=== PATIENT | female | born 1990 | race African-American/Black ===

== ENCOUNTER 2020-10-12 08:19 | Emergency (ER) | payer MEDICAID ==
[~2020-10-12] VITALS: Ht 157.5 cm; Wt 117.0 kg
[2020-10-12] MEDS ORDERED: ACETAMINOPHEN 325MG TABLET PO ONE (09:00)
[2020-10-12 09:29] LABS: BASOPHILS % 1.2 % (0.0-2.0); EOSINOPHILS % 3.5 % (0.0-5.0); HEMATOCRIT. 35.1 % (36.0-48.0); HEMOGLOBIN. 11.1 g/dL (12.0-16.0); LYMPHOCYTES % 34.8 % (20.0-50.0); MEAN CORPUSCULAR VOLUME 78.9 fL (81.0-99.0); MEAN PLATELET VOLUME 7.6 fl (7.4-10.4); MONOCYTES % 8.2 % (2.0-8.0); NEUTROPHILS % 52.3 % (40.0-76.0); PLATELET 449 x1000/uL (130-400); RED BLOOD CELL COUNT 4.44 mill/uL (4.2-5.4); RED CELL DISTRIBUTION WIDTH 16.4 % (11.6-14.6)
[2020-10-12 09:39] LABS: CHLORIDE 108 mEq/L (98-107)
[2020-10-12 09:46] LABS: CLARITY URINE CLEAR (CLEAR); COLOR URINE YELLOW (YELLOW); KETONES URINE NEGATIVE (NEGATIVE); LEUKOCYTE ESTERASE URINE NEGATIVE (NEGATIVE); NITRITE URINE NEGATIVE (NEGATIVE); OCCULT BLOOD URINE NEGATIVE (NEGATIVE); PH URINE 6.5 (4.5-8.0); PROTEIN URINE NEGATIVE (NEGATIVE); SPECIFIC GRAVITY URINE 1.025 (1.005-1.030); UROBILINOGEN URINE 0.2 E.U./dL (0.2-1.0)
[2020-10-12 10:04] LABS: *AMPHETAMINES SCREEN URINE NEGATIVE (NEGATIVE); *BARBITURATES SCREEN URINE NEGATIVE (NEGATIVE); *BENZODIAZEPINES SCREEN URINE NEGATIVE (NEGATIVE); *COCAINE SCREEN URINE NEGATIVE (NEGATIVE); METHADONE URINE SCREEN NEGATIVE (NEGATIVE)
[2020-10-12 10:05] LABS: CANNABINOID URINE SCREEN NEGATIVE (NEGATIVE); OPIATES URINE SCREEN NEGATIVE (NEGATIVE); PHENCYCLIDINE URINE SCREEN NEGATIVE (NEGATIVE)
[2020-10-12] MEDS ORDERED: NAPR-681 MT (11:27)
[2020-10-12 11:30] VITALS: BP 122/78
== END 2020-10-12 11:35 | disposition home or self-care (01) ==
LOC: ER 08:19
DX: R10.2 Pelvic and perineal pain (principal); Z98.890 Other specified postprocedural states
CPT/HCPCS: 36415; 76830; 76856; 80053; 80305; 81003; 81025; 85025; 99284

== ENCOUNTER 2020-11-15 09:31 | Emergency (ER) | payer MEDICAID ==
[~2020-11-15] VITALS: Ht 157.5 cm; Wt 113.0 kg
[~2020-11-15 09:31] MED LIST: NAPR-681 MT
[2020-11-15] MEDS ORDERED: ONDANSETRON HCL 4MG/2ML INJ IV STA (10:00)
[2020-11-15] MEDS ORDERED: SODIUM CHLORIDE 0.9% 1,000 ML IV ONE (10:00)
[2020-11-15] MEDS ORDERED: MORPHINE SULFATE 4 MG/ML CPJ (NOT FOR IM USE) IV STA (10:00)
[2020-11-15] MEDS ORDERED: NITROGLYCERIN 0.4MG TABLET SL SL ONE (10:15)
[2020-11-15 10:48] LABS: EOSINOPHILS % 4.7 % (0.0-5.0); HEMATOCRIT. 35.3 % (36.0-48.0); HEMOGLOBIN. 11.5 g/dL (12.0-16.0); LYMPHOCYTES % 34.2 % (20.0-50.0); MEAN CORPUSCULAR VOLUME 76.5 fL (81.0-99.0); MEAN PLATELET VOLUME 7.5 fl (7.4-10.4); MONOCYTES % 7.8 % (2.0-8.0); NEUTROPHILS % 52.3 % (40.0-76.0); PLATELET 482 x1000/uL (130-400); RED BLOOD CELL COUNT 4.62 mill/uL (4.2-5.4); RED CELL DISTRIBUTION WIDTH 17.1 % (11.6-14.6)
[2020-11-15 10:53] LABS: CHLORIDE 106 mEq/L (98-107)
[2020-11-15 11:00] VITALS: BP 123/77
[2020-11-15] MEDS ORDERED: ACETAMINOPHEN 325MG TABLET PO ONE (11:15)
[2020-11-15] MEDS ORDERED: ONDA4TAB5 PO (12:17)
== END 2020-11-15 12:53 | disposition home or self-care (01) ==
LOC: ER 09:31
DX: K22.0 Achalasia of cardia (principal); Z98.890 Other specified postprocedural states
CPT/HCPCS: 36415; 71045; 80053; 84484; 85025; 93005; 96361; 96374; 99285; J2405; J7030